=== PATIENT | male | born 1995 | race Caucasian/White ===

== ENCOUNTER 2016-09-12 11:35 | Emergency (ER) | payer OTHER ==
--- NOTE | ~2016-09-12 | CR63 ---
[facility] A Service of [facility] & [facility] [place] RADIOLOGY TEXT RESULTS PATIENT: ANAND CASILLAS LOCATION: SED : [birth year] UNIT #: [id number] AGE: [address]: TRISTIN PASTRANA SEX: M ORDER DR: [id number] [place] [id number] E MR#: [id number] Acc #: [id number] NAME: ANAND CASILLAS : 1995 SEX: M STUDY DATE/TIME: 09/12/2016 12:39 UNIT: SED ROOM: STUDY DESCRIPTION: CR Chest 2 View Attending Physician: Tristin Pastrana A.P.R.N. Ordering Physician: Tristin Pastrana A.P.R.N. [facility] REPORT This report is preliminary unless electronic signature is present. EXAM Two-view chest, 09/12/2016. HISTORY 21-year-old male with a cough for 1 week. COMPARISON None. FINDINGS 2 views of the chest demonstrate clear lungs. No pleural effusion or pneumothorax. Heart size and mediastinum are normal. Pulmonary vasculature normal. IMPRESSION No acute cardiopulmonary findings. Dictated by... Tristin Yoo M.D. THIS IS AN ELECTRONICALLY VERIFIED REPORT Tristin Yoo M.D. at 09/13/2016 8:57 AM LAM/nettie TD: 09/12/2016 13:29 JOB #: [id number] MEDICAL IMAGING REPORT Page 1 of 1
[~2016-09-12 11:35] MED LIST: BACITRACIN30 GM TOP; CORTISONE CREAM PO; FLOMAX0.4 M1; FLOMAX0.4 M1 PO; IBUPROFEN PO; LORATADINE PO; NASONEX17 GM; PERCOCET5/325 PO; PRILOSEC20 MG PO; VICODIN PO; ZOFRAN PO
== END 2016-09-12 13:13 | disposition home or self-care (01) ==
LOC: SED 11:35
DX: J20.9 Acute bronchitis, unspecified (principal); F17.200 Nicotine dependence, unspecified, uncomplicated
CPT/HCPCS: 71020; 99283

== ENCOUNTER 2016-10-07 17:19 | Emergency (ER) | payer OTHER | END 2016-10-07 17:52 | disposition home or self-care (01) | LOC: SED 17:19 | DX: R21 Rash and other nonspecific skin eruption (principal) | CPT/HCPCS: 99283 ==